=== PATIENT | female | born 1990 | race Two or more races ===

== ENCOUNTER 2024-02-08 19:20 | Inpatient (IN) | payer OTHER ==
[~2024-02-08] VITALS: Ht 157.5 cm; Wt 69.4 kg
[2024-02-08 20:12] VITALS: BP 153/98
[2024-02-08] MEDS ORDERED: MAGNESIUM SULFATE IN WATER 100 ML IV ONE (21:15)
[2024-02-08] MEDS ORDERED: FAMOTIDINE/PF 20 MG/2 ML VIAL IV PUSH PRN (21:30)
[2024-02-08] MEDS ORDERED: MAGNESIUM SULFATE IN WATER 500 ML IV SCH (21:30)
[2024-02-08] MEDS ORDERED: ACETAMINOPHEN 500 MG GEL..CAP PO PRN (21:30)
[2024-02-08 21:39] LABS: HEMATOCRIT 33.2 % (36.0-45.00); HEMOGLOBIN 11.3 g/dL (12.0-15.00); MEAN CELL VOLUME 91.7 fL (80.00-100.00); MEAN CORPUSCULAR HEMOGLOBIN 31.3 pg (27.00-32.0); MEAN CORPUSCULAR HGB CONC 34.1 g/dl (32.0-36.0); PLATELET COUNT 166 K/uL (150-450); RED BLOOD COUNT 3.62 M/uL (4.00-6.00); RED CELL DISTRIBUTION WIDTH 13.9 % (11.5-14.5)
[2024-02-08 21:50] LABS: PH,URINE 6.5 (5.0-8.0); URINE APPEARANCE Clear; URINE BILIRRUBIN Negative (NEGATIVE); URINE BLOOD Negative; URINE COLOR Dark Yellow; URINE GLUCOSE Negative (NEGATIVE); URINE KETONE Trace (NEGATIVE); URINE LEUKOCYTE Negative; URINE NITRATE Negative; URINE PROTEIN 30 (NEGATIVE)
[2024-02-08 21:51] LABS: URINE BACTERIA 1316.9 uL (0.0-1933); URINE EPITHELIAL CELLS 33.7 uL (0.0-38.8); URINE RBC 5.1 uL (0.0-20.8); URINE WBC 29.9 uL (0.0-23.2)
[2024-02-08] MEDS ORDERED: PRENATAL TABLE1 EAC1 PO (21:55)
[2024-02-08] MEDS ORDERED: SYNTHROID150 MCG PO (21:55)
[2024-02-08] MEDS ORDERED: IRON325 MG PO (21:55)
[2024-02-08 22:04] LABS: INR 0.94; PARTIAL THROMBOPLASTIN TIME 25.9 SECONDS (22.0-34.0); PROTHROMBIN TIME 10.3 SECONDS (9.0-11.5)
[2024-02-08 22:09] LABS: URINE CAST 0.14 uL (0.0-1.40)
[2024-02-08 22:09] LABS: ALBUMIN 2.9 gm/dL (3.4-5.0); BILIRUBIN TOTAL 0.26 mg/dL (0.3-1.2); CALCIUM 8.2 mg/dL (8.5-10.1); CREATININE SERUM 0.83 mg/dL (0.55-1.02); GFR 80.18; GLOBULINA 3.6 G/DL (2.4-3.5); POTASSIUM 3.84 mEq/L (3.5-5.1); TOTAL PROTEIN 6.5 gm/dL (6.4-8.2)
[2024-02-08] MEDS ORDERED: RINGERS SOLUTION,LACTATED 1,000 ML IV SCH (22:45)
[2024-02-08 23:20] VITALS: BP 146/96
[2024-02-09 04:09] VITALS: BP 139/81
[2024-02-09] MEDS ORDERED: LEVOTHYROXINE 150 MCG PO SCH (06:00)
[2024-02-09 06:15] VITALS: BP 133/86; O2SAT 98
[2024-02-09] MEDS ORDERED: OXYTOCIN 500 ML IV SCH (09:30)
[2024-02-09 13:28] VITALS: BP 144/89
[2024-02-09 16:02] VITALS: BP 170/94
[2024-02-09] MEDS ORDERED: hydrALAZINE HCL 20 MG VIAL IV ONE (16:30)
[2024-02-09] MEDS ORDERED: OXYTOCIN 1,000 ML IV SCH ×2 (18:00→18:45)
[2024-02-09] MEDS ORDERED: MORPHINE SULFATE 4 MG/ML CARTRIDGE IV PRN (18:00)
[2024-02-09] MEDS ORDERED: MORPHINE SULFATE 4 MG/ML VIAL IV ONE ×2 (18:35→19:05)
[2024-02-09] MEDS ORDERED: ONDANSETRON HCL 2 MG/ML VIAL IV ONE (19:00)
[2024-02-09] MEDS ORDERED: CEFAZOLIN SODIUM 1,000 MG VIAL IV ONE (19:00)
[2024-02-09] MEDS ORDERED: OXYTOCIN 20 UNITS/1000ML RL PIGGYBAG IV ONE (19:00)
[2024-02-09] MEDS ORDERED: ERYTHROMYCIN BASE OPHT 1GM EACH TUBE OP ONE (19:00)
[2024-02-09 20:30] VITALS: BP 143/84
[2024-02-09 23:30] VITALS: BP 151/84
[2024-02-10 03:07] VITALS: BP 142/92
[2024-02-10] MEDS ORDERED: PATIENTS OWN MEDICATION (MEDICAMENTO EN PISO) PO SCH (06:00)
[2024-02-10 06:26] VITALS: BP 139/83; O2SAT 96
[2024-02-10] MEDS ORDERED: FF) RHO(D) IMMUNE GLOBULIN (POM) IM ONE (08:45)
[2024-02-10] MEDS ORDERED: LABETALOL HCL 100 MG TABLET PO SCH (09:00)
[2024-02-10] MEDS ORDERED: IBUprofen 400 MG TABLET PO SCH (09:00)
[2024-02-10 10:56] VITALS: BP 122/79
[2024-02-10 11:52] LABS: HEMATOCRIT 27.8 % (36.0-45.00); MEAN CELL VOLUME 91.3 fL (80.00-100.00); MEAN CORPUSCULAR HEMOGLOBIN 31.8 pg (27.00-32.0); MEAN CORPUSCULAR HGB CONC 34.8 g/dl (32.0-36.0); PLATELET COUNT 216 K/uL (150-450); RED BLOOD COUNT 3.05 M/uL (4.00-6.00); RED CELL DISTRIBUTION WIDTH 14.4 % (11.5-14.5)
[2024-02-10 11:53] LABS: HEMOGLOBIN 9.7 g/dL (12.0-15.00)
[2024-02-10 16:00] VITALS: BP 123/85
[2024-02-11] VITALS: BP 111/75
[2024-02-11] MEDS ORDERED: OxyCODONE HCL 5 MG TABLET (ROXICODONE) PO PRN (06:00)
[2024-02-11 08:48] VITALS: BP 114/72
[2024-02-11 14:30] VITALS: BP 126/86
[2024-02-11 15:44] VITALS: BP 118/73
[2024-02-12 00:10] VITALS: BP 121/74
[2024-02-12] MEDS ORDERED: LEVOTHYROXINE SODIUM 150 MCG TABLET PO SCH (06:00)
[2024-02-12 08:47] LABS: MEAN CELL VOLUME 92.1 fL (80.00-100.00); MEAN CORPUSCULAR HGB CONC 34.5 g/dl (32.0-36.0); PLATELET COUNT 226 K/uL (150-450); RED BLOOD COUNT 2.29 M/uL (4.00-6.00); RED CELL DISTRIBUTION WIDTH 14.9 % (11.5-14.5)
[2024-02-12 08:54] LABS: ALBUMIN 2.5 gm/dL (3.4-5.0); BILIRUBIN TOTAL 0.3 mg/dL (0.3-1.2); CALCIUM 7.8 mg/dL (8.5-10.1); CREATININE SERUM 0.51 mg/dL (0.55-1.02); GFR 140.65; GLOBULINA 3.3 G/DL (2.4-3.5); TOTAL PROTEIN 5.8 gm/dL (6.4-8.2)
[2024-02-12 08:58] LABS: MEAN CORPUSCULAR HEMOGLOBIN 31.8 pg (27.00-32.0)
[2024-02-12 08:59] LABS: HEMATOCRIT 21.1 % (36.0-45.00); HEMOGLOBIN 7.3 g/dL (12.0-15.00)
[2024-02-12 10:34] VITALS: BP 116/79
[2024-02-12] MEDS ORDERED: SOD FERRIC GLUC COMPLX/SUCROSE 62.5 MG/5 ML AMPUL IV NR (12:00)
[2024-02-12 12:27] LABS: MEAN CORPUSCULAR HGB CONC 32.8 g/dl (32.0-36.0); PLATELET COUNT 224 K/uL (150-450); RED BLOOD COUNT 2.31 M/uL (4.00-6.00); RED CELL DISTRIBUTION WIDTH 14.8 % (11.5-14.5)
[2024-02-12 12:31] LABS: HEMATOCRIT 21.7 % (36.0-45.00); HEMOGLOBIN 7.1 g/dL (12.0-15.00); MEAN CORPUSCULAR HEMOGLOBIN 30.7 pg (27.00-32.0)
[2024-02-12 17:00] VITALS: BP 141/80
[2024-02-13 05:46] VITALS: BP 132/85
[2024-02-13 08:34] VITALS: BP 133/84
[2024-02-13 09:16] VITALS: BP 140/70
[2024-02-13 09:29] LABS: INR 0.95; PARTIAL THROMBOPLASTIN TIME 25.4 SECONDS (22.0-34.0); PROTHROMBIN TIME 10.4 SECONDS (9.0-11.5)
[2024-02-13 16:00] VITALS: BP 125/79
[2024-02-13 23:42] LABS: HEMATOCRIT 28.7 % (36.0-45.00); MEAN CELL VOLUME 89.7 fL (80.00-100.00); MEAN CORPUSCULAR HEMOGLOBIN 30.3 pg (27.00-32.0); MEAN CORPUSCULAR HGB CONC 33.8 g/dl (32.0-36.0); PLATELET COUNT 298 K/uL (150-450); RED CELL DISTRIBUTION WIDTH 15.9 % (11.5-14.5)
[2024-02-13 23:45] LABS: HEMOGLOBIN 9.7 g/dL (12.0-15.00)
== END 2024-02-13 22:45 | disposition home or self-care (01) | DRG 787 ==
LOC: LDR 19:20 → OB/GYN 02-09 18:38 → LDR 02-09 19:22 → OB/GYN 02-10 09:10
PROVIDERS: Obstetrics & Gynecology; ADMIT Obstetrics & Gynecology Gynecology; ATTEND Obstetrics & Gynecology Gynecology
PROC: 4A1HXCZ Monitoring of Products of Conception, Cardiac Rate, External Approach (ICD-10-PCS; 2024-02-09)
PROC: 10D00Z1 Extraction of Products of Conception, Low, Open Approach (ICD-10-PCS; principal; 2024-02-09 18:30)
PROC: 30233N1 Transfusion of Nonautologous Red Blood Cells into Peripheral Vein, Percutaneous Approach (ICD-10-PCS; 2024-02-13)
DX: O14.14 Severe pre-eclampsia complicating childbirth (principal); D62 Acute posthemorrhagic anemia; O99.02 Anemia complicating childbirth; Z3A.38 38 weeks gestation of pregnancy; Z37.0 Single live birth; Z20.822 Contact with and (suspected) exposure to COVID-19